=== PATIENT | female | born 1965 | race Caucasian/White ===

== ENCOUNTER 2020-05-29 14:26 | Emergency (ER) | payer OTHER ==
[2020-05-29 14:43] VITALS: BP 165/99; PULSE 93; TEMP 98.1; BMI 29.9
[2020-05-29] MEDS ORDERED: KETOROLAC TROMETHAMINE 60 MG/2 ML VIAL IM ONE (15:33)
[2020-05-29] MEDS ORDERED: METHOCARBAMOL 500 MG TABLET PO ONE (15:34)
[2020-05-29] MEDS ORDERED: METHOCARBAMOL 500 MG TABLET ONE (15:35)
[2020-05-29] MEDS ORDERED: KETOROLAC TROMETHAMINE 30 MG/1 ML VIAL ONE (15:35)
== END 2020-05-29 17:06 | disposition home or self-care (01) ==
LOC: JERFT 14:26
PROC: 3E0233Z Introduction of Anti-inflammatory into Muscle, Percutaneous Approach (ICD-10-PCS; principal; 2020-05-29)
DX: M54.2 Cervicalgia (principal); M54.5 Low back pain
CPT/HCPCS: 72050-TC-FY; 72100-TC-FY; 73060-TC-LT-FY; 99284-25